=== PATIENT | male | born 1940 | race Caucasian/White ===

== ENCOUNTER 2017-07-01 06:54 | Emergency (ER) | payer OTHER ==
[~2017-07-01] VITALS: Ht 170.2 cm; Wt 70.1 kg
[~2017-07-01 06:54] MED LIST: ADULT FOLDING1 EACH MC; ADULT LOW DOSE81 M1 PO; ATORVASTATIN CA80 MG PO; ATORVASTATIN TAB 80M PO; DECADRON4 MG/ML 1M PO; DEXAMETHASONE4 MG PO; Ecotrin PO; LEVAQUIN500 MG PO; LISINOPRIL2.5 MG PO; METFORMIN HCL1000 M1 PO; METFORMIN HCL1000 MG PO; METOPROLOL SUCC25 MG PO; Percocet 5/325,Endoc PO; TIZANIDINE HCL4 MG PO; Vicodin,Norco 5/325 PO; ZETIA10 MG PO
[2017-07-01 07:35] LABS: HEMATOCRIT 37.1 % (38.0-50.0); MCHC 31.8 G/DL (30.0-36.0); MCV 87.9 FL (86-99); MEAN PLAT.VOLUME 9.8 uM^3 (9.0-12.4); PLATELET COUNT 172 K/uL (156-360); RBC DIS.WIDTH-CV 13.2 % (11.8-14.6); RBC DIS.WIDTH-SD 42.7 % (39-53); RED BLOOD COUNT 4.22 M/uL (4.00-5.50)
[2017-07-01 07:44] LABS: CHLORIDE 108 mEq/L (99-109); POTASSIUM 4.4 mEq/L (3.7-5.4); SODIUM 143 mEq/L (136-147)
[2017-07-01 07:46] LABS: GLUCOSE 117 mg/dL (70-99)
[2017-07-01 07:47] LABS: ANION GAP 11 MEQ/L (2-14)
[2017-07-01 07:50] LABS: GFR ESTIMATE (CALCULATED) > 59 mL/min/
[2017-07-01 07:51] LABS: UREA NITROGEN (BUN) 25 mg/dL (9-23)
[2017-07-01 07:56] LABS: TROP-I INTERPRETATION NEGATIVE; TROPONIN-I < 0.01 ng/mL (0.0-0.30)
[2017-07-01 08:31] LABS: ADD MIUA? NO; BILIRUBIN NEGATIVE; BLOOD NEGATIVE; COLOR YELLOW ((YELLOW)); GLUCOSE (STRIP) NEGATIVE; KETONES NEGATIVE; LEUKOCYTES NEGATIVE; NITRITE NEGATIVE; PROTEIN (STRIP) NEGATIVE; SPECIFIC GRAVITY 1.021 (1.000-1.030); UROBILINOGEN 0.2 MG/DL (0.2-1.0)
[2017-07-01 09:35] VITALS: BP 171/72
== END 2017-07-01 09:35 | disposition left against medical advice (07) ==
LOC: EME 06:54
PROVIDERS: Nurse Practitioner Family
DX: R07.9 Chest pain, unspecified (principal); M54.2 Cervicalgia; I45.10 Unspecified right bundle-branch block; I10 Essential (primary) hypertension; E11.9 Type 2 diabetes mellitus without complications; Z79.84 Long term (current) use of oral hypoglycemic drugs; I25.2 Old myocardial infarction; Z95.1 Presence of aortocoronary bypass graft; Z79.82 Long term (current) use of aspirin; Z87.891 Personal history of nicotine dependence
CPT/HCPCS: 71020; 80048; 81003; 84484; 85027; 93005; 99281; 99285; J7030